=== PATIENT | male | born 1955 | race Caucasian/White ===

== ENCOUNTER 2025-07-13 08:35 | Day surgery (SDC) | payer MEDICARE ==
[~2025-07-13] VITALS: Ht 185.4 cm; Wt 108.8 kg
[~2025-07-13 08:35] MED LIST: ATOR40TA75 PO; BAYE325T2 PO; CARV25TA PO; CLOP75TA2 PO; DORZ2SOL5 OU; GABA-1172 PO; HYDR-4433 PO; LISI10TA24 PO; PHENYLEPHRINE 10% OPHTH SOL 5ML OD PRN; SILD1TAB8 PO; XALA0.007 OU
[2025-07-13] MEDS ORDERED: MIDAZOLAM INJ 2 MG/2 ML VIAL As Ordered ONE (09:42)
[2025-07-13] MEDS: OFLOXACIN 0.3 % (OCUFLOX) OPTH SOL 5ML OD ONE (10:20)
[2025-07-13] MEDS: LIDOCAINE 3.5% 1 ML OPHTH TOPICAL GEL OU ONE (10:20)
[2025-07-13] MEDS: CYCLOPENTOLATE 1% OPHTH SOLN 2 ML BTL OD SCH (10:29)
[2025-07-13] MEDS: PHENYLEPHRINE 2.5% OPHTH SOL 2ML OD SCH (10:29)
[2025-07-13] MEDS: TROPICAMIDE 1% OPHTH SOLN 15ML OD SCH (10:29)
[2025-07-13] MEDS: BSS IRRIG/VANCO(10MG)/TOBRA(5MG)/EPINEPH(1:1000-0.5CC)500ML BAG-ORONLY As Ordered ONE (11:19)
[2025-07-13] MEDS: LIDOCAINE 1% SDV 5 ML VIAL As Ordered ONE (11:19)
[2025-07-13] MEDS: CEFUROXIME 1 MG/0.1 ML INTRACAMERAL INJ As Ordered ONE (11:19)
[2025-07-13 11:42] VITALS: BP 156/93; TEMP 96.7; O2SAT 97
== END 2025-07-13 12:15 | disposition home or self-care (01) ==
LOC: M SDC 08:35
PROVIDERS: ATTEND Ophthalmology
DX: H40.1111 Primary open-angle glaucoma, right eye, mild stage (principal); H25.11 Age-related nuclear cataract, right eye; I48.91 Unspecified atrial fibrillation; I25.2 Old myocardial infarction; I10 Essential (primary) hypertension; E78.00 Pure hypercholesterolemia, unspecified; G47.30 Sleep apnea, unspecified; Z95.5 Presence of coronary angioplasty implant and graft; Z79.899 Other long term (current) drug therapy; Z79.82 Long term (current) use of aspirin; Z95.818 Presence of other cardiac implants and grafts
CPT/HCPCS: 66991; C1783; J0697; J2250; J3010; V2788